=== PATIENT | male | born 1965 | race Two or more races ===

== ENCOUNTER 2019-09-25 12:02 | Inpatient (IN) | payer OTHER ==
[~2019-09-25] VITALS: Ht 188 cm; Wt 107.0 kg
[2019-09-25] MEDS ORDERED: HUMALOG100 UNIT/1 SUBCUTANEO (12:23)
[2019-09-25] MEDS ORDERED: SYNJARDY 5-5001 EACH PO (12:25)
[2019-09-25] MEDS ORDERED: VASOTEC10 MG (12:25)
--- NOTE | 2019-09-25 12:27 | NUR ---
PACIENTE ALERTA Y ORIENTADO X3 ES REFERIDO DR. CARMELLA SUTTON PARA EVALUACION MEDICA. SE UBICA EN AREA DE OBSERVACION.
--- NOTE | 2019-09-25 14:08 | NUR ---
PACIENTE EVALUADO POR MARCOS PINEDA SE CHIOMA MUESTARS D ESNAGRE Y S LORI ADMINSTRAMEDICAMNETO , PACIENTE EN CONSULTA CON EL SE MANTIENE EN OBSERVACION PO RCAMBIOS EN LEUNG CONDICON.
--- NOTE | 2019-09-25 15:33 | NUR ---
SE RECIBE PTE ALERTA Y ORIENTADO X3 EN COMPANIA DE FAMILIAR EN CAMA CON BAANDAS ELEVADAS. SE RECIBE PTE CANALIZADO AREA [place] DE EDEMA Y DE ENROJECIMIENTO. PTE EN ESPERA DE CONSULTA CON MEDICINA INTERNA.
[2019-09-29] MEDS ORDERED: NeurRONTin 400MG CAP PO (10:48)
== END 2019-09-29 17:39 | disposition home or self-care (01) | DRG 256 ==
LOC: ER 12:02 → SURH 16:08 → SEC-K 16:08 → SURH 16:41 → MEDI 09-26 17:02 → MEDJ 09-26 17:02
PROVIDERS: Specialist; ADMIT Internal Medicine
PROC: 0Y6R0Z0 Detachment at Right 2nd Toe, Complete, Open Approach (ICD-10-PCS; principal; 2019-09-26 05:15)
DX: E11.52 Type 2 diabetes mellitus with diabetic peripheral angiopathy with gangrene (principal); M86.171 Other acute osteomyelitis, right ankle and foot; L97.518 Non-pressure chronic ulcer of other part of right foot with other specified severity; E11.69 Type 2 diabetes mellitus with other specified complication; B95.61 Methicillin susceptible Staphylococcus aureus infection as the cause of diseases classified elsewhere; E11.65 Type 2 diabetes mellitus with hyperglycemia; E11.621 Type 2 diabetes mellitus with foot ulcer